=== PATIENT | female | born 1940 | race American Indian/Alaskan Native ===

== ENCOUNTER 2018-04-25 08:45 | Day surgery (SDC) | payer MEDICARE, OTHER ==
[2018-04-20 13:45] VITALS: BMI 26.5
--- NOTE | 2018-04-25 10:42 | CP.SDSHP ---
Same Day Surgery H & P - History Proposed Procedure: CT guided biopsy of pelvic mass Pre-Op Diagnosis: pelvic mass - Allergies Allergies: Allergies No Known Allergies Allergy (Verified 04/20/18 13:45) - Physical Exam Mental Status: Alert & Oriented x3 Neuro: WNL Heart: WNL Lungs: WNL - Impression Impression: Pt with a large pelvic mass extending into right adnexa. Mass has been present over 5 years. Pt referred for repeat biopsy. Previous biopsy 09/2012. Plan CT guided biopsy. Pt. Evaluated Today:Candidate for Anesthesia & Procedure: Yes (ASA 3 Malampati 2) - Date & Time Date: 04/25/18 Time: 10:00 Short Stay Discharge - Short Stay Discharge Admitting Diagnosis/Reason for Visit: BIOPSY OF ADNEXAL MASS Disposition: HOME/ ROUTINE
--- NOTE | 2018-04-25 10:43 | PCM.SURG1 ---
Surgeon's Initial Post Op Note - Surgeon's Notes Surgeon: Ricky Sue MD Stitchdown Toe Former: NONE Type of Anesthesia: Local Pre-Operative Diagnosis: pelvic mass Operative Findings: CT showed large uterine mass extending into right adenexa. Post-Operative Diagnosis: pelvic mass Operation Performed: CT guided core biopsy. Three 18-g core specimen obtained. Specimen/Specimens Removed: 18 gauge core x 3 Estimated Blood Loss: EBL {In ML}: 1 Blood Products Given: N/A Drains Used: No Drains Post-Op Condition: Good Date of Surgery/Procedure: 04/25/18 Time of Surgery/Procedure: 10:40
--- NOTE | 2018-04-25 13:25 | CT ---
PROCEDURE: Date of procedure: Procedure: CT-guided right adnexal mass biopsy Radiation: 795.90 MGy-cm Medications: The patient sedated by anesthesiologist along with physiologic monitoring. 1 percent lidocaine HISTORY: Right adnexal mass TECHNIQUE: Following informed consent, patient placed supine on CT table. Noncontrast CT scan confirmed the presence of a large uterine mass extending into the right adnexa containing coarse popcorn calcification. The mass was present on the previous CT from 2012 The patient right lower abdomen was prepped and draped in the usual sterile fashion. After the skin was anesthetized with percent lidocaine, an 18 gauge core needle was advanced under CT guidance into the mass. Upon confirmation of needle position, three 18 gauge core specimens were obtained and sent for routine histology. A post biopsy CT scan showed no hematoma. . IMPRESSION: CT-guided biopsy of right adnexal mass.
== END 2018-04-25 11:35 | disposition home or self-care (01) ==
LOC: C.SPRAD 08:45
PROVIDERS: ATTEND Radiology Vascular & Interventional Radiology
DX: D48.3 Neoplasm of uncertain behavior of retroperitoneum (principal)